=== PATIENT | female | born 1945 | race Caucasian/White ===

== ENCOUNTER 2019-10-11 13:14 | Outpatient (CLI) | payer MEDICARE ==
--- NOTE | 2019-10-11 14:05 | RAD ---
Exam: 3 views thoracic spine HISTORY: Pain FINDINGS: AP, lateral swimmer's view demonstrate mild loss of disc space height throughout the thorac ic spine. Vertebral body height is maintained. No fractures or malalignment. IMPRESSION: Multilevel degenerative change.
--- NOTE | 2019-10-11 14:07 | RAD ---
Cervical spine 4 views: 10/11/2019 COMPARISON: 04/06/2012 HISTORY: Radicular pain FINDINGS: There is disc space narrowing with degenerative endplate change and anterior osteophyte for mation at C4-5, C5-6, and C6-7, similar when compared to the prior exam. Stable disc space narrowing with degenerative endplate change present at C2-3. No prevertebral soft tissue swelling. Mi nimal stable anterolisthesis at C7-T1 measuring 3 mm on neutral imaging, 3 mm on extension imaging and 4 mm on flexion. In addition, there is mild anterolisthesis at C3-4 measuring 2-3 mm on flexion, not seen on neutral or extension imaging. Cervical spine degenerative change as detailed above. There is atherosclerotic calcification of the a ortic arch. IMPRESSION: No acute findings. Cervical spine degenerative change as above.
== END 2019-10-11 13:15 | disposition home or self-care (01) ==
LOC: RAD 13:14
PROVIDERS: ATTEND Nurse Practitioner Family
DX: M47.22 Other spondylosis with radiculopathy, cervical region (principal); M54.6 Pain in thoracic spine; M47.814 Spondylosis without myelopathy or radiculopathy, thoracic region
CPT/HCPCS: 72040; 72072

== ENCOUNTER 2019-10-25 09:11 | Outpatient (CLI) | payer MEDICARE ==
--- NOTE | 2019-10-25 10:00 | RAD ---
EXAM: Flexion-extension lateral radiographs of the cervical spine (3 views) DATE: 10/25/2019 12:00 AM INDICATION: Neck pain and radicular symptoms COMPARISON: October 11, 2019 FINDING: There is stable anterolisthesis of C3 on C4 and C7 on T1. No definite abnormal translationa l motion is grossly evident. The advanced disc degenerative disease at C5-6 and C6-7 is stable. Moderate disc degenerative disease at C4-5 is stable. Multilevel facet osteoarthritic changes stable. IMPRESSION:Stable exam.
--- NOTE | 2019-10-25 10:02 | RAD ---
EXAM: XR Thoracic Spine 3 V STANDARD DATE: 10/25/2019 12:00 AM INDICATION: Mid back pain COMPARISON: Prior exam dated October 11, 2019 FINDING: Multilevel spondylosis is stable. Thoracolumbar scoliosis is stable. No acute fracture or s ubluxation is evident. Visualized lungs are clear. There is diffuse osteopenia. IMPRESSION:Stable spondylosis of the thoracic spine.
--- NOTE | 2019-10-25 10:46 | MRI ---
MRI Cervical spine without contrast: HISTORY: Cervical radicular pain. Occasional tingling in arms and hands. COMPARISON: None FINDINGS: Mild mucosal thickening is seen in each visualized maxillary antrum. The craniocervical junction demonstrates a normal appearance. No significant cord signal abnormality. Paravertebral soft tissues have a normal appearance and normal signal intensity. C1-2:No significant stenosis. C2-3: There is loss of intervertebral disc height. There is a mild disc osteophyte complex present. T his results in slight effacement of the ventral subarachnoid space. The neural foramina are patent. C3-4: There is a mild disc osteophyte complex with small central disc protrusion. This results in mil d effacement of the ventral aspect of the subarachnoid space. Right neural foramen is patent with mild left-sided neural foraminal narrowing C4-5: There is loss of intervertebral disc height and endplate degenerative changes. Broad-based disc osteophyte complex is present. This results in mild narrowing of the central spinal canal and resultant mild flattening of the anterior aspect of the spinal cord. Normal signal intensity is prese nt in the spinal cord at this level. Facet degenerative changes are present. Mild bilateral neural foraminal narrowing is present. C5-6: There is loss of intervertebral disc height with endplate degenerative changes. A broad-based d isc osteophyte complex is present. There is generalized narrowing of the central spinal canal. Flattening of the anterior aspect of the spinal cord is noted, and there is normal signal intensity i n the spinal cord. Mild to moderate bilateral neural foraminal narrowing is present. C6-7: There is mild loss of intervertebral disc height. Minimal disc osteophyte complex is present. N o significant narrowing of the central spinal canal. The neural foramina are patent. There is a subcentimeter increased T2-weighted signal intensity focus in the right neural foramen probably relat ed to dilated nerve root sleeve. C7-T1: Mild disc osteophyte complex is present. There are facet degenerative changes. There is mild e ffacement of the ventral subarachnoid space. The neural foramina are patent. IMPRESSION: Degenerative changes seen throughout the cervical spine greatest at the C4-5 and C5-C6 levels.
--- NOTE | 2019-10-25 11:20 | MRI ---
MR OF THE THORACIC SPINE WITHOUT CONTRAST INDICATION: Mid back pain TECHNIQUE: Multiplanar multisequence MR images were obtained of the thoracic spine without contrast. Spine count series was provided. COMPARISON: Thoracic spinal radiographs dated October 25, 2019 FINDINGS: Bone marrow signal intensity: Normal Spinal alignment: There is very mild retrolisthesis of T11 on T12 and T10 on T11 Spinal cord: Normal signal intensity and contour. Paravertebral soft tissues: There is a large hiatal hernia. There is moderate intrahepatic and extra hepatic biliary ductal dilatation. The gallbladder is not definitely seen; however, this may be beyond the [id number]. No definite surgical clips are seen within the upper abdomen on the compari son thoracic spine radiographs Vertebral levels: T1-T2: No appreciable central canal or neural foraminal narrowing is evident. T2-T3: No appreciable central canal or neural foraminal narrowing. T3-T4: No appreciable central canal or neural foraminal narrowing. T4-T5: No appreciable central canal or neural foraminal narrowing. T5-T6: No appreciable central canal or neural foraminal narrowing. T6-T7: There is a 6 mild broad-based disc bulge without appreciable central canal or neural foraminal narrowing. T7-T8: There is a right paracentral protrusion at T7-T8. T8-T9: There is a small right paracentral protrusion at T8-T9. T9-T10: There is a small central disc protrusion at T9-T10. T10-T11: No appreciable central canal or neural foraminal narrowing is demonstrated. T11-T12: There is a mild broad-based disc bulge without appreciable central canal or neural foraminal narrowing. T12-L1: There is a mild broad-based disc bulge without appreciable central canal or neural foraminal narrowing. Additional findings: None. IMPRESSION: 1. Mild spondylosis of the lumbar spine without appreciable central canal or neural foraminal narrowi ng. 2. Moderate prominence of the biliary system. This may be related to postcholecystectomy state. Recom mend correlation with patient's surgical history. 3. Large hiatal hernia
== END 2019-10-25 09:12 | disposition home or self-care (01) ==
LOC: TBSIIMAG 09:11
PROVIDERS: ATTEND Nurse Practitioner Family
DX: M54.6 Pain in thoracic spine (principal); M47.22 Other spondylosis with radiculopathy, cervical region; M47.814 Spondylosis without myelopathy or radiculopathy, thoracic region; M47.816 Spondylosis without myelopathy or radiculopathy, lumbar region; K44.9 Diaphragmatic hernia without obstruction or gangrene; Z90.49 Acquired absence of other specified parts of digestive tract
CPT/HCPCS: 72040; 72072; 72141; 72146

== ENCOUNTER 2023-03-04 13:16 | Outpatient (CLI) | payer MEDICARE | END 2023-03-04 13:17 | disposition home or self-care (01) | LOC: SCSMRI 13:16 | PROVIDERS: ATTEND Specialist | DX: M51.16 Intervertebral disc disorders with radiculopathy, lumbar region (principal); M47.26 Other spondylosis with radiculopathy, lumbar region | CPT/HCPCS: 72148 ==